=== PATIENT | male | born 1990 | race Two or more races ===

== ENCOUNTER 2016-06-14 04:15 | Emergency (ER) | payer BC, OTHER ==
[~2016-06-14 04:15] MED LIST: Metoclopramide IV* 5 MG/ML 2 ML VIAL ONE
[2016-06-14] MEDS ORDERED: NS 0.9% 1000 ML* 1,000 ML IV ONE ×2 (04:18→07:33)
[2016-06-14] MEDS ORDERED: Ondansetron INJ* 2 MG/ML VIAL IV ONE (04:18)
[2016-06-14] MEDS ORDERED: Morphine INJ* 4 MG/ML 1 ML CARPUJECT IV ONE (04:19)
[2016-06-14] MEDS ORDERED: HYDROmorphone INJ* 1 MG/ML CARPUJECT SYRINGE IV SLOW PU ONE ×2 (04:50→06:32)
[2016-06-14 05:07] LABS: Budding Yeast Present (Absent); Urine Bacteria Absent (Absent); Urine Bilirubin Negative (Negative); Urine Glucose Negative (Negative); Urine Nitrite Negative (Negative)
[2016-06-14 05:10] LABS: ALT 26 U/L (7-52); AST 22 U/L (13-39); Albumin 4.5 g/dL (3.2-5.2); Alkaline Phosphatase 60 U/L (34-104); Anion Gap 9 mmol/L (2-11); BUN/Creatinine Ratio 10.5 (8-20); Blood Urea Nitrogen 12 mg/dL (6-24); C Reactive Protein < 1.00 mg/L (< 5.00); CO2 Carbon Dioxide 26 mmol/L (22-32); Calcium 9.8 mg/dL (8.6-10.3); Chloride 102 mmol/L (101-111); EGFR African American 99.9 (>60); EGFR Non-African American 77.6 (>60); Globulin 2.6 g/dL (2-4); Glucose 130 mg/dL (70-100); Lipase 12 U/L (11.0-82.0); Potassium 3.6 mmol/L (3.5-5.0); Sodium 137 mmol/L (133-145); Total Protein 7.1 g/dL (6.4-8.9)
[2016-06-14 05:17] LABS: Hematocrit 44 % (42-52); Mean Corpuscular HGB Conc 34 g/dl (31-36); Mean Corpuscular Hemoglobin 31 pg (27-31); Mean Corpuscular Volume 90 fL (80-94); Mean Platelet Volume 8 um3 (7.4-10.4); Red Blood Count 4.91 10^6/ul (4.0-5.4); Red Cell Distribution Width 12 % (10.5-15); White Blood Count 13.9 10^3/ul (3.5-10.8)
[2016-06-14] MEDS ORDERED: Metoclopramide IV* 5 MG/ML 2 ML VIAL ONE (05:21)
[2016-06-14] MEDS ORDERED: Metoclopramide IV* 5 MG/ML 2 ML VIAL IV ONE (05:21)
--- NOTE | 2016-06-14 05:22 | ED ---
Samuel Harper Adam, scribed for Jovani Escalona MD on 06/14/16 at 0421 . Abdominal Pain/Male - HPI Summary HPI Summary: Pt is a 26 year old male presenting with RLQ abdominal pain. He states that the pain set on 3 hours ago suddenly while he was lying in bed. He has never had this pain before. It is localized in the RLQ and it radiates to the back. Movement, standing, and walking aggravate the pain. Pt also c/o nausea w/o vomiting. - History of Current Complaint Stated Complaint: RT SIDE ABD PAIN Time Seen by Provider: 06/14/16 04:17 Hx Obtained From: Patient Onset/Duration: Sudden Onset, Lasting Hours, Still Present Timing: Constant Severity Initially: Moderate Severity Currently: Moderate Location: Discrete At: RLQ Radiates: Yes Radiates to: Back Aggravating Factor(s): Movement, Other: - Standing, walking Alleviating Factor(s): Nothing Associated Signs And Symptoms: Positive: Nausea. Negative: Vomiting - Allergies/Home Medications Allergies/Adverse Reactions: Allergies Allergy/AdvReac Type Severity Reaction Status Date / Time No Known Allergies Allergy Verified 06/14/16 04:20 Home Medications: Home Medications Cholecalciferol TAB* [Vitamin D TAB*] 400 unit PO DAILY 06/14/16 [History Confirmed 06/14/16] Loratadine 10 mg PO DAILY 06/14/16 [History Confirmed 06/14/16] Multivitamins/Minerals TAB* [Thera M Plus TAB*] 1 tab PO DAILY 06/14/16 [ History Confirmed 06/14/16] PMH/Surg Hx/FS Hx/Imm Hx Previously Healthy: Yes Infectious Disease History: No - Family History Known Family History: Positive: Cardiac Disease - Grandparents, Diabetes - Grandparents - Social History Occupation: Employed Full-time Lives: Alone Review of Systems Positive: Abdominal Pain, Nausea. Negative: Vomiting Musculoskeletal: Negative All Other Systems Reviewed And Are Negative: Yes Physical Exam Triage Information Reviewed: Yes Vital Signs On Initial Exam: Initial Vitals Resp 20 06/14/16 04:32 Vital Signs Reviewed: Yes Appearance: Positive: Ill-Appearing, Pain Distress - moderate discomfort Skin: Positive: Warm Eyes: Positive: JOSH ENT: Positive: Hearing grossly normal Neck: Positive: Supple Respiratory/Lung Sounds: Positive: Clear to Auscultation, Breath Sounds Present Cardiovascular: Positive: Normal Abdomen Description: Positive: Soft, Guarding, [place] Tenderness. Negative: Distended Bowel Sounds: Positive: Present Musculoskeletal: Positive: Strength/ROM Intact Neurological: Positive: Sensory/Motor Intact Diagnostics - Vital Signs Vital Signs Temp Pulse Resp BP Pulse Ox 06/14/16 04:54 22 06/14/16 04:34 99.4 F 105 22 148/93 100 06/14/16 04:32 20 - Laboratory Lab Results: Lab Results 06/14/16 06/14/16 06/14/16 Range/Units 04:38 04:38 04:38 WBC 13.9 H (3.5-10.8) 10^3/ul RBC 4.91 (4.0-5.4) 10^6/ul Hgb 15.0 (14.0-18.0) g/dl Hct 44 (42-52) % MCV 90 (80-94) fL MCH 31 (27-31) pg MCHC 34 (31-36) g/dl RDW 12 (10.5-15) % Plt Count 255 (150-450) 10^3/ul MPV 8 (7.4-10.4) um3 Neut % (Auto) 86.8 H (38-83) % Lymph % (Auto) 9.2 L (25-47) % [place] % (Auto) 3.2 (1-9) % Eos % (Auto) 0.6 (0-6) % Baso % (Auto) 0.2 (0-2) % Absolute Neuts (auto) 12.1 H (1.5-7.7) 10^3/ul Absolute Lymphs (auto) 1.3 (1.0-4.8) 10^3/ul Absolute Monos (auto) 0.4 (0-0.8) 10^3/ul Absolute Eos (auto) 0.1 (0-0.6) 10^3/ul Absolute Basos (auto) 0 (0-0.2) 10^3/ul Absolute Nucleated RBC 0.01 10^3/ul Nucleated RBC % 0 Sodium 137 (133-145) mmol/L Potassium 3.6 (3.5-5.0) mmol/L Chloride 102 (101-111) mmol/L Carbon Dioxide 26 (22-32) mmol/L Anion Gap 9 (2-11) mmol/L BUN 12 (6-24) mg/dL Creatinine 1.14 (0.67-1.17) mg/dL Est GFR ( Amer) 99.9 (>60) Est GFR (Non-Af Amer) 77.6 (>60) BUN/Creatinine Ratio 10.5 (8-20) Glucose 130 H (70-100) mg/dL Lactic Acid 1.6 (0.5-2.0) mmol/L Calcium 9.8 (8.6-10.3) mg/dL Total Bilirubin 0.80 (0.2-1.0) mg/dL AST 22 (13-39) U/L ALT 26 (7-52) U/L Alkaline Phosphatase 60 (34-104) U/L C-Reactive Protein < 1.00 (< 5.00) mg/L Total Protein 7.1 (6.4-8.9) g/dL Albumin 4.5 (3.2-5.2) g/dL Globulin 2.6 (2-4) g/dL Albumin/Globulin Ratio 1.7 (1-3) Lipase 12 (11.0-82.0) U/L Urine Color Urine Appearance Urine pH (5-9) Ur Specific [place] (1.010-1.030) Urine Protein (Negative) Urine Ketones (Negative) Urine Blood (Negative) Urine Nitrate (Negative) Urine Bilirubin (Negative) Urine Urobilinogen (Negative) Ur Leukocyte Esterase (Negative) Urine WBC (Auto) (Absent) Urine RBC (Auto) (Absent) Ur Squamous Epith Cells (Absent) Urine Bacteria (Absent) Urine Yeast (Absent) Urine Glucose (Negative) Urine Ascorbic Acid (Negative) 06/14/16 Range/Units 04:43 WBC (3.5-10.8) 10^3/ul RBC (4.0-5.4) 10^6/ul Hgb (14.0-18.0) g/dl Hct (42-52) % MCV (80-94) fL MCH (27-31) pg MCHC (31-36) g/dl RDW (10.5-15) % Plt Count (150-450) 10^3/ul MPV (7.4-10.4) um3 Neut % (Auto) (38-83) % Lymph % (Auto) (25-47) % [place] % (Auto) (1-9) % Eos % (Auto) (0-6) % Baso % (Auto) (0-2) % Absolute Neuts (auto) (1.5-7.7) 10^3/ul Absolute Lymphs (auto) (1.0-4.8) 10^3/ul Absolute Monos (auto) (0-0.8) 10^3/ul Absolute Eos (auto) (0-0.6) 10^3/ul Absolute Basos (auto) (0-0.2) 10^3/ul Absolute Nucleated RBC 10^3/ul Nucleated RBC % Sodium (133-145) mmol/L Potassium (3.5-5.0) mmol/L Chloride (101-111) mmol/L Carbon Dioxide (22-32) mmol/L Anion Gap (2-11) mmol/L BUN (6-24) mg/dL Creatinine (0.67-1.17) mg/dL Est GFR ( Amer) (>60) Est GFR (Non-Af Amer) (>60) BUN/Creatinine Ratio (8-20) Glucose (70-100) mg/dL Lactic Acid (0.5-2.0) mmol/L Calcium (8.6-10.3) mg/dL Total Bilirubin (0.2-1.0) mg/dL AST (13-39) U/L ALT (7-52) U/L Alkaline Phosphatase (34-104) U/L C-Reactive Protein (< 5.00) mg/L Total Protein (6.4-8.9) g/dL Albumin (3.2-5.2) g/dL Globulin (2-4) g/dL Albumin/Globulin Ratio (1-3) Lipase (11.0-82.0) U/L Urine Color Noemi Urine Appearance Cloudy Urine pH 5.0 (5-9) Ur Specific [place] 1.033 H (1.010-1.030) Urine Protein 2+(100 mg/dl) H (Negative) Urine Ketones 2+ H (Negative) Urine Blood 3+ H (Negative) Urine Nitrate Negative (Negative) Urine Bilirubin Negative (Negative) Urine Urobilinogen Negative (Negative) Ur Leukocyte Esterase Negative (Negative) Urine WBC (Auto) 2+(11-20/hpf) H (Absent) Urine RBC (Auto) 3+(>10/hpf) H (Absent) Ur Squamous Epith Cells Present H (Absent) Urine Bacteria Absent (Absent) Urine Yeast Present H (Absent) Urine Glucose Negative (Negative) Urine Ascorbic Acid * H (Negative) Result Diagrams: 06/14/16 04:38 06/14/16 04:38 Lab Statement: Any lab studies that have been ordered have been reviewed, and results considered in the medical decision making process. Abdominal Pain Fem Course/Dx - Diagnoses Provider Diagnoses: Kidney stone Discharge - Discharge Plan Condition: Stable Disposition: HOME Prescriptions: Ciprofloxacin TAB* [Cipro Tab*] 500 mg PO BID #20 tab Ondansetron ODT TAB* [Zofran Odt TAB*] 4 mg PO Q6H PRN #20 tab.odt PRN Reason: Nausea/Vomiting Tamsulosin CAP* [Flomax CAP*] 0.4 mg PO DAILY #7 cap oxyCODONE/Acetamin 5/325 MG* [Percocet 5/325 TAB*] 1 tab PO Q6H PRN #20 tab MDD 4 PRN Reason: Pain Patient Education Materials: Ciprofloxacin (By mouth), Oxycodone/Acetaminophen (By mouth), Ondansetron (By mouth), Tamsulosin (By mouth), Kidney Stones (ED) Referrals: [facility] [place] PHYSICIAN REFERRAL [Outside] Additional Instructions: Follow up with [facility] [place] Referral. The documentation as recorded by the Samuel tomlinson Adam accurately reflects the service I personally performed and the decisions made by Pola wilcox David, MD.
[2016-06-14] MEDS ORDERED: Iohexol 300* (CONTRAST) 10 ML SDV IV ONE (06:46)
[2016-06-14] MEDS ORDERED: Ketorolac INJ* 30 MG/ML 1 ML VIAL IV ONE (07:33)
--- NOTE | 2016-06-14 08:31 | RAD ---
INDICATION: Right lower quadrant pain. COMPARISON: There are no prior studies available for comparison. TECHNIQUE: A CT scan of the abdomen and pelvis was performed with intravenous and oral contrast following intravenous injection of 101 ml of Omnipaque 300 nonionic contrast. Contiguous axial sections were obtained from the lung bases through the symphysis pubis. Images were reconstructed in the coronal and sagittal planes. FINDINGS: The lung bases are clear. No pleural effusion is present. The liver and spleen are within normal limits in size without significant focal abnormality. No calcified gallstones are seen. The pancreas appears to be within normal limits in size. The adrenal glands and kidneys are normal in size. There is mild perinephric stranding around the right kidney. There is a delayed right nephrogram and mild to moderate right hydronephrosis to the level of a 2.5 mm calculus in the proximal right ureter. No bladder calculi are seen. The aorta is normal in caliber and demonstrates homogeneous contrast opacification. There is a retroaortic left renal vein. No significant enlarged retroperitoneal lymph nodes are seen. The stomach, small and large bowel appear nondistended. The appendix is within normal limits. There is no evidence for diverticulitis or colitis. No free intraperitoneal air or fluid is seen. No significant focal osseous abnormality is seen. IMPRESSION: THERE IS A 2.5 MM CALCULUS IN THE PROXIMAL RIGHT URETER CAUSING [id number] HYDRONEPHROSIS.
--- NOTE | 2016-06-14 08:47 | RAD ---
HISTORY: Kidney stone COMPARISONS: CT dated June 14, 2016 VIEWS: Frontal views of the abdomen. FINDINGS: BOWEL: There is a nonspecific bowel gas pattern, with nondilated small bowel gas noted. Oral contrast is noted within the colon. CALCULI: Contrast is noted within the renal collecting system and bladder. The right renal calculus is not identified on the current examination BONES AND SOFT TISSUES: There are no osseous abnormalities. OTHER FINDINGS: The lung bases are clear. There is no subphrenic gas. IMPRESSION: THE RIGHT RENAL CALCULUS NOTED ON THE PREVIOUS EXAMINATION IS NOT EVIDENT ON THE CURRENT EXAMINATION, THOUGH EVALUATION IS LIMITED BY OVERLYING STOOL, ORAL CONTRAST, AND EXCRETED INTRAVENOUS CONTRAST
[2016-06-14 09:55] VITALS: BP 128/76
--- NOTE | 2016-06-14 10:22 | CONS ---
UROLOGY CONSULTATION: DATE OF CONSULT: 06/14/16 - EMERGENCY DEPT. AGE: 26 years, male. REQUESTING PHYSICIAN: Dr. Marin Harrison DIAGNOSES: 1. Calculus, right ureter. 2. Right hydronephrosis. CONSULTATION: Mya Bowers is a 26-year-old gentleman who presented to the emergency room with right lower quadrant pain radiating to the right testicle. He also had nausea and vomiting and mild chills, but no fever. Evaluation in the emergency room consisted of a CT scan with contrast which revealed an obstructing calculus, approximately 3 mm, in the proximal to mid right ureter. He continues to have pain requiring multiple doses of intravenous analgesics. PAST MEDICAL HISTORY: Unremarkable - specifically, there is no history of diabetes mellitus or any other major systemic illness. PAST SURGICAL HISTORY: Significant for right shoulder surgery. MEDICATIONS: On admission, none. ALLERGIES: No known drug allergies. FAMILY HISTORY: There is a family history of kidney stones on his father's side. REVIEW OF SYSTEMS: He denies any chest pain or shortness of breath. There are no complaints referable to the neurologic cardiovascular system. PHYSICAL EXAM: Reveals a pleasant, mildly uncomfortable, young gentleman. Blood pressure is 128/75, pulse 101 per minute, and respirations 18 per minute. Cardiovascular Exam: Regular rate and rhythm. S1 and S2. Lungs are clear bilaterally. Abdomen is soft without masses. There is mild right flank tenderness. Testicles are descended bilaterally and are normal. DIAGNOSTIC STUDIES/LAB DATA: I reviewed the labs which revealed a white count of 13.9, hemoglobin and hematocrit are normal at 15 and 44. Review of the chemistry reveals sodium of 137, potassium of 3.6, BUN and creatinine are 12 and 1.14, lactic acid is 1.6, glucose is 130. Urinalysis reveals 2+ ketones, 3 + blood, absent bacteria. The CT scan which I reviewed revealed an approximately 3 mm calculus in the proximal right ureter with [id number] right hydronephrosis. PLAN: I had a detailed discussion with Mr. Bowers regarding the management options. Given the small size of the calculus, my recommendation would be to try conservative management with oral analgesics, anti-nausea medication, and alpha- blockers to try and promote passage of the calculus. I have instructed him to call me if the pain is not controlled with the oral pain medications or if he starts running a fever. Otherwise, he is to call for followup and be seen in followup as an outpatient within the next 48 hours. CC: [facility]; Rajat Mosher MD* [id number]/[facility] [place] #: [id number] MTDD
--- NOTE | 2016-06-14 12:50 | ED ---
Ender Harper Salem, scribed for Marin Harrison MD on 06/14/16 at 0728 . Progress - Progress Note Progress Note: CT ABD/Pelvis Radiologist FINDINGS: Positive for a 2.5mm obstructing stone in the right proximal to mid ureter. It is causing mild to moderate hydronephrosis and delayed excretion of contrast. Normal left kidney and urinary tract. Normal bowel. Abundant stool in the right colon. Normal appendix. Normal liver. Normal gallbladder. Normal spleen. Normal pancreas. Normal adrenal glands. XRAY ABD: Radiologist IMPRESSION: THE RIGHT RENAL CALCULUS NOTED ON THE PREVIOUS EXAMINATION IS NOT EVIDENT ON THE CURRENT EXAMINATION, THOUGH EVALUATION IS LIMITED BY OVERLYING STOOL, ORAL CONTRAST, AND EXCRETED INTRAVENOUS CONTRAST Mr. Bowers got pin control here and fluids and antibiotics as he has on obstruction and an equivocal urine. Dr. Mosher was consulted and came to the Ed t see him and felt that he was safe for D/C. He was given scripts for percocet , zofran, flomax and cipro and D/C'd in stable condition with a diagnosis of kidney stone. His urine was sent for C&S. Re-Evaluation - Re-Evaluation First Eval Re-Evaluation Time: 07:28 Comment: Informed pt of CT (ABD and Pelvis) results. Course/Dx - Diagnoses Provider Diagnoses: Kidney stone - Provider Notifications Discussed Care Of Patient With: Dr. Mosher (Urologist) @ 1225. Will see him in ED. Discharge - Discharge Plan Condition: Stable Disposition: HOME Prescriptions: Ciprofloxacin TAB* [Cipro Tab*] 500 mg PO BID #20 tab Ondansetron ODT TAB* [Zofran Odt TAB*] 4 mg PO Q6H PRN #20 tab.odt PRN Reason: Nausea/Vomiting Tamsulosin CAP* [Flomax CAP*] 0.4 mg PO DAILY #7 cap oxyCODONE/Acetamin 5/325 MG* [Percocet 5/325 TAB*] 1 tab PO Q6H PRN #20 tab MDD 4 PRN Reason: Pain Patient Education Materials: Ciprofloxacin (By mouth), Oxycodone/Acetaminophen (By mouth), Ondansetron (By mouth), Tamsulosin (By mouth), Kidney Stones (ED) Referrals: [facility] [place] PHYSICIAN REFERRAL [Outside] Additional Instructions: Follow up with [facility] [place] Referral. The documentation as recorded by the Ender tomlinson Salem accurately reflects the service I personally performed and the decisions made by me, Marin Harrison MD.
== END 2016-06-14 09:45 | disposition home or self-care (01) ==
LOC: ED 04:15
DX: N20.0 Calculus of kidney (principal); R10.31 Right lower quadrant pain; R11.0 Nausea
CPT/HCPCS: 36415; 74000; 74177; 80053; 81003; 81015; 83605; 83690; 85025; 86140; 99283; J1170; J1885; J2270; J2405; J2765; Q9967

== ENCOUNTER → 2016-10-29 08:50 | Emergency (ER) | payer BC ==
[~2016-10-29 08:50] MED LIST changes: +Acetaminophen TAB* 325 MG PO ONE; +Clindamycin 600 MG IVPREMIX(* 600 MG/50 ML SDV IV ONE; -Metoclopramide IV* 5 MG/ML 2 ML VIAL ONE
[2016-10-29 08:56] VITALS: BP 148/89
--- NOTE | 2016-10-29 10:58 | ED ---
Skin Complaint - HPI Summary HPI Summary: patient sent from [facility] [address] for fevers, sweats, chills and abscess over the right upper leg superior to the knee which is not fluctuant, but has a small raised white pustule in the center. Hx of MRSA. There are erythematous areas streaking from the wound up the leg. He denies N/V/C/D or diaphoresis. Denies SOB or chest pain. He has taken tylenol with relief of symptoms of fevers and sweats. No known bug bite or trauma to the area. - History of Current Complaint Chief Complaint: EDRashSkinAbscess Time Seen by Provider: 10/29/16 09:10 Stated Complaint: RIGHT LEG INFECTION, FEVER Hx Obtained From: Patient Onset/Duration: Started Days Ago Skin Exposure Onset/Duration: Days Ago Timing: Constant Onset Severity: Moderate Current Severity: Moderate Pain Intensity: 7 Pain Scale Used: 0-10 Numeric Skin Location: Leg Character: Raised, Painful Aggravating Symptom(s): Nothing Alleviating Symptom(s): Nothing Associated Signs & Symptoms: Tenderness, Red Streaks - Allergy/Home Medications Allergies/Adverse Reactions: Allergies Allergy/AdvReac Type Severity Reaction Status Date / Time No Known Allergies Allergy Verified 06/14/16 04:20 PMH/Surg Hx/FS Hx/Imm Hx Previously Healthy: Yes Endocrine/Hematology History: Denies: Hx Diabetes Cardiovascular History: Denies: Hx Hypertension History: Denies: Hx Renal Disease - Immunization History Hx Pertussis Vaccination: No Immunizations Up to Date: Unable to Obtain/Confirm Infectious Disease History: Yes Infectious Disease History: Denies: Traveled Outside the [place] in Last 30 Days - Family History Known Family History: Positive: Cardiac Disease - Grandparents, Diabetes - Grandparents - Social History Occupation: Employed Full-time Lives: With Family Alcohol Use: Rare Hx Substance Use: No Substance Use Type: Reports: None Hx Tobacco Use: No Smoking Status (MU): Former Smoker Review of Systems Positive: Fever, Chills, Skin Diaphoresis Eyes: Negative Cardiovascular: Negative Respiratory: Negative Positive: no symptoms reported, see HPI Musculoskeletal: Negative Positive: Other - right upper leg abscess Neurological: Negative Psychological: Normal All Other Systems Reviewed And Are Negative: Yes Physical Exam Triage Information Reviewed: Yes Vital Signs On Initial Exam: Initial Vitals Temp Pulse Resp BP Pulse Ox 99.9 F 118 16 148/89 97 10/29/16 08:53 07/23/17 08:53 10/29/16 08:53 10/29/16 08:53 10/29/16 08:53 Vital Signs Reviewed: Yes Appearance: Positive: Well-Appearing, Well-Nourished Skin: Positive: Warm, Skin Color Reflects Adequate Perfusion, Other - 2x2 erythematous raised area to the right upper leg just superior to the knee with a small white pustule Eyes: Positive: EOMI, JOSH, Conjunctiva Clear Neck: Positive: Supple, No Lymphadenopathy Respiratory/Lung Sounds: Positive: Clear to Auscultation, Breath Sounds Present Cardiovascular: Positive: Normal, RRR Musculoskeletal: Positive: Normal, Strength/ROM Intact Neurological: Positive: Normal, Sensory/Motor Intact, Alert, Oriented to Person Place, Time Psychiatric: Positive: Normal AVPU Assessment: Alert Diagnostics - Vital Signs Vital Signs Temp Pulse Resp BP Pulse Ox 10/29/16 08:53 99.9 F 118 16 148/89 97 - Laboratory Result Diagrams: 10/29/16 10:57 10/29/16 10:57 Lab Statement: Any lab studies that have been ordered have been reviewed, and results considered in the medical decision making process. Course/Dx - Course Course Of Treatment: 2x2 erythematous raised area to the right upper leg just superior to the knee with a small white pustule. clindamycin given in ED 600mg IV. Tylenol given with relief of fever. Clindamycin 300mg 4x daily PO given for rx. Culture obtained and sent showing staph +; MRSA -, Patient made aware of plan and is OK with discharge. Patient will follow up with PCP and return if symptoms become worse. Return precautions given, medications and side effects reviewed. - Differential Diagnoses - Skin Complaint Differential Diagnoses: Abscess, Cellulitis, Tick Born Illness - Diagnoses Provider Diagnoses: Abscess Discharge - Discharge Plan Condition: Stable Disposition: HOME Prescriptions: Clindamycin Cap(NF) [Cleocin 300 mg Cap(NF)] 300 mg PO Q6H #28 cap Patient Education Materials: Abscess (ED) Referrals: Non Staff,Doctor [Primary Care Provider] - Additional Instructions: If you develop any worsening redness around the area, more warmth, red streaking moving away from the area, you develop a fever or have any other worsening symptoms, return to the ED immediately.
[2016-10-29 11:05] LABS: Hematocrit 46 % (42-52); Hemoglobin 15.4 g/dl (14.0-18.0); Mean Corpuscular HGB Conc 33 g/dl (31-36); Mean Corpuscular Hemoglobin 31 pg (27-31); Mean Corpuscular Volume 94 fL (80-94); Mean Platelet Volume 8 um3 (7.4-10.4); Red Blood Count 4.93 10^6/ul (4.0-5.4); Red Cell Distribution Width 12 % (10.5-15); White Blood Count 8.6 10^3/ul (3.5-10.8)
[2016-10-29 11:18] LABS: Albumin 4.6 g/dL (3.2-5.2); BUN/Creatinine Ratio 9.4 (8-20); C Reactive Protein 71.88 mg/L (< 5.00); Calcium 9.6 mg/dL (8.6-10.3); EGFR African American 121.8 (>60); EGFR Non-African American 94.7 (>60); Potassium 3.7 mmol/L (3.5-5.0); Total Bilirubin 1.3 mg/dL (0.2-1.0); Total Protein 7.6 g/dL (6.4-8.9)
== END | disposition home or self-care (01) ==
LOC: ED 08:50
DX: L02.415 Cutaneous abscess of right lower limb (principal); R50.9 Fever, unspecified; Z87.891 Personal history of nicotine dependence; Z86.14 Personal history of Methicillin resistant Staphylococcus aureus infection
CPT/HCPCS: 36415; 80053; 85025; 86140; 87070; 87077; 87186; 87205; 87640; 87641; 99283; A9270-GY